=== PATIENT | male | born 1985 | race Caucasian/White ===

== ENCOUNTER 2022-04-10 22:46 | Emergency (ER) | payer SELFPAY ==
[~2022-04-10] VITALS: Ht 167.6 cm; Wt 84.0 kg
[2022-04-10 22:48] VITALS: BP 133/89
== END 2022-04-10 22:57 | disposition left against medical advice (07) ==
LOC: ER 22:46
DX: S09.8XXA Other specified injuries of head, initial encounter (principal); Y04.0XXA Assault by unarmed brawl or fight, initial encounter; Y93.89 Activity, other specified; Y92.59 Other trade areas as the place of occurrence of the external cause
CPT/HCPCS: 99283